=== PATIENT | female | born 1990 | race Caucasian/White ===

== ENCOUNTER 2016-12-11 20:38 | Emergency (ER) | payer MEDICAID ==
[2016-12-12 00:13] LABS: APPEARANCE HAZY (CLEAR); COLOR YELLOW (YELLOW)
[2016-12-12 00:14] LABS: BASOPHILS 0.6 % (0.0-2.0); BILIRUBIN NEGATIVE (NEGATIVE); EOSINOPHILS 2.3 % (0-7); GLUCOSE NEGATIVE (NEGATIVE); HEMATOCRIT 37.7 % (36.0-48.0); IMMATURE GRANULOCYTES 0.1 % (0-5); KETONE MODERATE mg/dL (NEGATIVE); LEUKOCYTE ESTERASE NEGATIVE (NEGATIVE); LYMPHOCYTES 35.9 % (15-50); MCH 30.4 pg (26.0-34.0); MCHC 34.5 g/dL (31.0-37.0); MCV 88.3 fL (80.0-100.0); MEAN PLATELET VOLUME 9.4 fL (7.4-10.4); MONOCYTES 7.3 % (2-11); NEUTROPHILS 53.8 % (40-80); NITRITE NEGATIVE (NEGATIVE); PH 6.5 (5.0-6.0); PLATELET COUNT 213 10x3/uL (130-400); PROTEIN NEGATIVE (NEGATIVE); RBC 4.27 10x6/uL (4.00-5.40); RDW 13.4 % (11.5-14.5); SPECIFIC GRAVITY 1.015 (1.005-1.020); UROBILINOGEN NORMAL (NORMAL); WBC 7.1 10x3/uL (4.8-10.8)
== END 2016-12-12 23:53 | disposition home or self-care (01) ==
LOC: D.ER 20:38
PROVIDERS: Emergency Medicine
DX: G44.209 Tension-type headache, unspecified, not intractable (principal)